=== PATIENT | male | born 1935 | race Caucasian/White ===

== ENCOUNTER 2019-07-16 15:13 | Inpatient (IN) | payer MEDICARE, OTHER ==
[~2019-07-16] VITALS: Ht 177.8 cm; Wt 86.5 kg
--- NOTE | 2019-07-16 15:32 | NUR ---
TELE NEURO HAS BEEN INITIATED
[2019-07-16 15:48] LABS: PARTIAL THROMBOPLASTIN TIME 32 SECONDS (22-32)
[2019-07-16 15:51] LABS: ALANINE AMINOTRANSFERASE 28 U/L (12-78); ALBUMIN 3.4 G/DL (3.4-5.0); ALBUMIN/GLOBULIN RATIO 1.2 (1.1-1.5); ALKALINE PHOSPHATASE 57 IU/L (46-116); ANION GAP 7 (8-16); ASPARTATE AMINO TRANSFERASE 23 U/L (10-37); BILIRUBIN,TOTAL 0.7 MG/DL (0.1-1.0); BLOOD UREA NITROGEN 16 MG/DL (7-18); BUN/CREATININE RATIO 16.3 (5.4-32.0); CALCIUM 7.5 MG/DL (8.5-10.1); CHLORIDE 99 MMOL/L (99-107); CREATININE 0.98 MG/DL (0.60-1.10); GLUCOSE 104 MG/DL (70-104); POTASSIUM 3.6 MMOL/L (3.5-5.1); SODIUM 131 MMOL/L (135-145); TOTAL PROTEIN 6.2 G/DL (6.4-8.2); eGFR 73 ML/MIN
[2019-07-16 15:54] LABS: TROPONIN I < 0.04 NG/ML (0.0-0.05)
[2019-07-16 16:10] LABS: BASOPHILS % (AUTO) 0.2 % (0-1); EOSINOPHILS # (AUTO) 0.1 X10'3 (0-0.9); EOSINOPHILS % (AUTO) 1.1 % (0-6); HEMATOCRIT 36.4 % (42.0-52.0); HEMOGLOBIN 12.7 g/dl (14.0-17.9); LYMPHOCYTES # (AUTO) 1.1 X10'3 (1.1-4.8); LYMPHOCYTES % (AUTO) 16.4 % (21-51); MEAN CORPUSCULAR HEMOGLOBIN 32.4 PG (27.0-31.0); MEAN CORPUSCULAR HGB CONC 34.8 g/dL (33.0-36.5); MEAN CORPUSCULAR VOLUME 93.1 FL (78-98); MONOCYTES # (AUTO) 0.7 X10'3 (0-0.9); MONOCYTES % (AUTO) 10.3 % (2-12); NEUTROPHILS # (AUTO) 4.8 X10'3 (1.8-7.7); PLATELET COUNT 152 X10'3 (140-440); RED BLOOD COUNT 3.91 X10'6 (4.70-6.10); RED CELL DISTRIBUTION WIDTH 13.1 % (11.5-14.5); WHITE BLOOD COUNT 6.6 X10'3 (4.5-11.0)
[2019-07-16] MEDS ORDERED: aspirin 81mg tab.chew PO ONE (16:20)
[2019-07-16] MEDS ORDERED: magnesium 4gm in 100ml NS 100 ML IV PRN (16:25)
[2019-07-16] MEDS ORDERED: magnesium 2GM in 50ml NS 50 ML IV PRN (16:25)
[2019-07-16] MEDS ORDERED: potassium Cl 20 mEq SR tablet PO PRN ×2 (16:25)
[2019-07-16] MEDS ORDERED: morphine 2 MG/ML inj. syringe IV PRN ×2 (16:25)
[2019-07-16] MEDS: K and/or MAG REPLACEMENT MC SCH (16:25)
[2019-07-16] MEDS ORDERED: acetaminophen 325mg tablet PO PRN ×2 (16:25)
[2019-07-16] MEDS ORDERED: HYDROcodone/acetaminophen 10/325mg tab PO PRN (16:25)
[2019-07-16] MEDS ORDERED: magnesium Cl slow-release 64mg tablet PO PRN (16:25)
[2019-07-16] MEDS ORDERED: diphenhydrAMINE 25mg capsule PO PRN (16:25)
[2019-07-16] MEDS ORDERED: potassium CL 10mEq/100ml bag 100 ML IV PRN ×2 (16:25)
[2019-07-16] MEDS ORDERED: mag hydrox/Alum hydrox/simeth 30ml oral suspension PO PRN (16:25)
[2019-07-16] MEDS ORDERED: magnesium hydroxide 30ml (MOM) UD suspension PO PRN (16:25)
[2019-07-16] MEDS ORDERED: bisacodyl 10mg suppository rectal RC PRN (16:25)
[2019-07-16] MEDS ORDERED: ondansetron/PF 4mg/2ml inj IV PRN (16:25)
[2019-07-16] MEDS ORDERED: HYDROcodone/acetaminophen 5mg/325mg tablet PO PRN (16:25)
[2019-07-16] MEDS ORDERED: CARV25TA2 PO (16:38)
[2019-07-16] MEDS ORDERED: NAPR-996 PO (16:38)
[2019-07-16] MEDS ORDERED: FLUT16SP2 BOTHNARES (16:38)
[2019-07-16] MEDS ORDERED: DOXA4TAB3 PO (16:38)
[2019-07-16] MEDS ORDERED: SIMV-45 PO (16:38)
[2019-07-16] MEDS ORDERED: MULT-933 PO (16:38)
[2019-07-16] MEDS ORDERED: LEVO75TA PO (16:38)
[2019-07-16] MEDS ORDERED: LORA-269 PO (16:38)
[2019-07-16] MEDS ORDERED: RANI150C4 PO (16:38)
[2019-07-16] MEDS ORDERED: APIX2.5T PO (16:38)
[2019-07-16] MEDS ORDERED: LISI-604 PO (16:38)
[2019-07-16] MEDS ORDERED: ASPI-611 PO (16:38)
[2019-07-16 16:59] LABS: CHOL/HDL RATIO 2.2 (0.00-4.99); CHOLESTEROL 121 MG/DL (0-200); HDL CHOLESTEROL 55 MG/DL (35-60); LDL CHOLESTEROL 56 MG/DL (50-100); TRIGLYCERIDES 80 MG/DL (20-135)
[2019-07-16 17:27] LABS: CLARITY,URINE CLEAR (Clear); COLOR,URINE YELLOW (Yellow); GLUCOSE, URINE NEGATIVE (Neg); KETONES,URINE TRACE mg/dl (Neg); LEUKOCYTE ESTERASE ,URINE NEGATIVE (Neg); NITRITES, URINE NEGATIVE (Neg); OCCULT BLOOD,URINE NEGATIVE (Neg); PROTEIN,URINE NEGATIVE (Neg); UROBILINOGEN,URINE 0.2 E.U/dL (0.2-1.0)
[2019-07-16 17:32] LABS: UA COLLECTION TYPE CLN CATCH MIDSTREAM
--- NOTE | 2019-07-16 17:42 | NUR ---
Patient in room ED 4. I have received report from Av in the ED and had the opportunity to ask questions and assume patient care.
[2019-07-16 17:45] LABS: HEMOGLOBIN A1C 5.8 % (4.5-6.2)
[2019-07-16] MEDS: normal saline 1000ml 1,000 ML IV SCH (17:56)
--- NOTE | 2019-07-16 18:00 | NUR ---
Patient in room ED 4. I have received report from RADHA Wallace and had the opportunity to ask questions and assume patient care.
[2019-07-16 18:01] VITALS: BP 145/91
--- NOTE | 2019-07-16 18:13 | NUR ---
Problems reprioritized. Patient report given, questions answered & plan of care reviewed with Kaley.
[2019-07-16 22:00] VITALS: BP 149/80
[2019-07-16] MEDS ORDERED: benzocaine/menthol oral lozeng 1 EACH BOX MM PRN (22:40)
[2019-07-16] MEDS ORDERED: LORazepam 0.5 MG tablet PO PRN (22:40)
[2019-07-16] MEDS ORDERED: atorvastatin 20mg tablet PO SCH (22:40)
[2019-07-16] MEDS ORDERED: atorvastatin 10mg tablet PO SCH (22:50)
[2019-07-16] MEDS: apixaban 2.5mg tablet PO SCH (23:13)
[2019-07-17 02:00] VITALS: BP 129/68
[2019-07-17] MEDS: normal saline 1000ml 1,000 ML IV SCH ×2 (02:21→04:49)
[2019-07-17 06:00] VITALS: BP 115/61
--- NOTE | 2019-07-17 06:24 | NUR ---
Problems reprioritized. Patient report given, questions answered & plan of care reviewed with RADHA Beauchamp.
--- NOTE | 2019-07-17 06:30 | NUR ---
received report from fernando green
--- NOTE | 2019-07-17 06:30 | NUR ---
Patient in room [facility]THO 4013. I have received report from Quynh GARCIA and had the opportunity to ask questions and assume patient care.
[2019-07-17] MEDS: K and/or MAG REPLACEMENT MC SCH (06:59)
[2019-07-17] MEDS: apixaban 2.5mg tablet PO SCH (07:15)
[2019-07-17 07:22] LABS: BASOPHILS % (AUTO) 0.1 % (0-1); EOSINOPHILS # (AUTO) 0.1 X10'3 (0-0.9); EOSINOPHILS % (AUTO) 1.5 % (0-6); HEMATOCRIT 36.3 % (42.0-52.0); LYMPHOCYTES # (AUTO) 1.5 X10'3 (1.1-4.8); LYMPHOCYTES % (AUTO) 24.4 % (21-51); MEAN CORPUSCULAR HEMOGLOBIN 33.1 PG (27.0-31.0); MEAN CORPUSCULAR HGB CONC 35.7 g/dL (33.0-36.5); MEAN CORPUSCULAR VOLUME 92.9 FL (78-98); MEAN PLATELET VOLUME 6.9 FL (7.4-10.4); MONOCYTES # (AUTO) 0.7 X10'3 (0-0.9); NEUTROPHILS # (AUTO) 3.8 X10'3 (1.8-7.7); PLATELET COUNT 153 X10'3 (140-440); RED BLOOD COUNT 3.91 X10'6 (4.70-6.10); RED CELL DISTRIBUTION WIDTH 13.2 % (11.5-14.5)
[2019-07-17 07:51] LABS: ALANINE AMINOTRANSFERASE 31 U/L (12-78); ALBUMIN 3.6 G/DL (3.4-5.0); ALBUMIN/GLOBULIN RATIO 1.1 (1.1-1.5); ALKALINE PHOSPHATASE 64 IU/L (46-116); ANION GAP 8 (8-16); ASPARTATE AMINO TRANSFERASE 22 U/L (10-37); BILIRUBIN,TOTAL 0.5 MG/DL (0.1-1.0); BLOOD UREA NITROGEN 15 MG/DL (7-18); CALCIUM 8.8 MG/DL (8.5-10.1); CHLORIDE 102 MMOL/L (99-107); CHOL/HDL RATIO 2.3 (0.00-4.99); CHOLESTEROL 137 MG/DL (0-200); GLUCOSE 109 MG/DL (70-104); HDL CHOLESTEROL 60 MG/DL (35-60); LDL CHOLESTEROL 62 MG/DL (50-100); MAGNESIUM 2.1 MG/DL (1.5-2.4); PHOSPHORUS 3.2 MG/DL (2.3-4.5); POTASSIUM 4.1 MMOL/L (3.5-5.1); SODIUM 134 MMOL/L (135-145); TOTAL CARBON DIOXIDE 24.1 MMOL/L (24-32); TOTAL PROTEIN 6.9 G/DL (6.4-8.2); TRIGLYCERIDES 99 MG/DL (20-135); eGFR 72 ML/MIN
[2019-07-17] MEDS ORDERED: apixaban 2.5mg tablet PO SCH (08:00)
[2019-07-17] MEDS ORDERED: levoTHYROXINE 75mcg tablet PO SCH (08:00)
[2019-07-17] MEDS ORDERED: famotidine 20mg tablet PO SCH (08:00)
[2019-07-17] MEDS ORDERED: lisinopril 5mg tablet PO SCH (08:00)
[2019-07-17] MEDS ORDERED: doxazosin mesylate 2mg tablet PO SCH (08:00)
[2019-07-17] MEDS ORDERED: carVEDilol 12.5mg tablet PO SCH (08:00)
[2019-07-17] MEDS ORDERED: atorvastatin 10mg tablet PO SCH (08:00)
[2019-07-17] MEDS ORDERED: fluticasone nasal spray 16GM bottle NS SCH (08:00)
[2019-07-17] MEDS ORDERED: non-formulary drug (Aspirin (Aspir 81) 1 TAB) PO SCH (08:00)
[2019-07-17] MEDS ORDERED: aspirin 81mg tablet.DR PO SCH (08:00)
[2019-07-17] MEDS ORDERED: multivitamins, therapeutics tablet PO SCH (08:00)
[2019-07-17] MEDS ORDERED: iohexol 350MG/ML 100ml bottle IV ONE (08:45)
[2019-07-17 10:00] VITALS: BP 134/72
--- NOTE | 2019-07-17 11:08 | NUR ---
Student documentation: I have reviewed all interventions, assessments performed and [facility] Medication Administration: For this medication-pass time frame, all medication were reviewed, dispensed, administered and documented per [facility] policy [facility]
--- NOTE | 2019-07-17 13:45 | NUR ---
Spoke with Dr. Deluca who rounded on pt who said pt should now be on Eliquis 5mg BID for discharge and he stated pt was previously on Eliquis 2.5mg BID which was ineffective for stroke like symptoms. Relayed this message to Hospitalist for discharge.
[2019-07-17] MEDS ORDERED: APIX5TAB3 PO (14:02)
--- NOTE | 2019-07-17 14:35 | NUR ---
PT D/C WITH INSTRUCTIONS, UNDERSTANDING OF INSTRUCTIONS AND W/ALL BELONGINGS WALKING OUT W/GRANDDAUGHTER AND DAUGHTER TO GO HOME AND F/U W/PCP
--- NOTE | 2019-07-17 14:50 | NUR ---
Malnutrition consult: Pt admit w/ stroke alert PO 75-100% heart healthy first meals, normal strength, no edema/wounds. First patient admit w/ pt stated wt. At this time pt does not meet minimum malnutrition criteria; will continue to monitor. Addendum: 07/17/19 at [address] Amended: Links added.
[2019-07-17] MEDS ORDERED: LORazepam 1 MG tablet PO SCH (21:00)
== END 2019-07-17 14:30 | disposition home or self-care (01) | DRG 65 ==
LOC: ER 15:13 → ED HOLD 16:21 → ORTHO 4S 17:40 → CMPBEDREQ 19:51 → ORTHO 4S 21:34
PROVIDERS: ADMIT Family Medicine; ATTEND Family Medicine
PROC: B3251ZZ Computerized Tomography (CT Scan) of Bilateral Common Carotid Arteries using Low Osmolar Contrast (ICD-10-PCS; principal; 2019-07-17)
PROC: B32G1ZZ Computerized Tomography (CT Scan) of Bilateral Vertebral Arteries using Low Osmolar Contrast (ICD-10-PCS; 2019-07-17)
PROC: B3281ZZ Computerized Tomography (CT Scan) of Bilateral Internal Carotid Arteries using Low Osmolar Contrast (ICD-10-PCS; 2019-07-17)
DX: I63.9 Cerebral infarction, unspecified (principal); E87.1 Hypo-osmolality and hyponatremia; R47.01 Aphasia; E03.9 Hypothyroidism, unspecified; E78.5 Hyperlipidemia, unspecified; I10 Essential (primary) hypertension; F32.9 Major depressive disorder, single episode, unspecified; I25.10 Atherosclerotic heart disease of native coronary artery without angina pectoris; I48.0 Paroxysmal atrial fibrillation; K21.9 Gastro-esophageal reflux disease without esophagitis; Z60.2 Problems related to living alone; N40.0 Benign prostatic hyperplasia without lower urinary tract symptoms; F41.9 Anxiety disorder, unspecified; Z66 Do not resuscitate; I25.2 Old myocardial infarction; Z79.01 Long term (current) use of anticoagulants; Z79.899 Other long term (current) drug therapy; Z80.51 Family history of malignant neoplasm of kidney; Z82.49 Family history of ischemic heart disease and other diseases of the circulatory system; Z86.73 Personal history of transient ischemic attack (TIA), and cerebral infarction without residual deficits; Z87.891 Personal history of nicotine dependence; Z95.5 Presence of coronary angioplasty implant and graft; Z95.810 Presence of automatic (implantable) cardiac defibrillator; Z88.8 Allergy status to other drugs, medicaments and biological substances
CPT/HCPCS: 36415; 70450; 70496; 70498; 71045; 80053; 80061; 81003; 83036; 83735; 84100; 84443; 84484; 85025; 85610; 85651; 85730; 87081; 92508; 92616; 93005; 93306; 93880; 97116; 97161; 97530; 99285; G0378; J7030; Q9967

== ENCOUNTER 2023-08-09 06:08 | Day surgery (SDC) | payer MEDICARE, OTHER ==
[2023-08-08 12:08] LABS: APTT 29 SECONDS (22-32); PROTHROMBIN TIME 10.5 SECONDS (9.0-12.0)
[2023-08-08 12:09] LABS: ALBUMIN 3.6 G/DL (3.4-5.0); ANION GAP 7 (8-16); BLOOD UREA NITROGEN 19 MG/DL (7-18); BUN/CREATININE RATIO 15.2 (10.0-20.0); CALCIUM 8.9 MG/DL (8.5-10.1); CHLORIDE 94 MMOL/L (99-107); CREATININE 1.25 MG/DL (0.60-1.10); GLUCOSE 127 MG/DL (70-104); POTASSIUM 4.8 MMOL/L (3.5-5.1); SODIUM 128 MMOL/L (135-145); TOTAL CARBON DIOXIDE 26.8 MMOL/L (24-32); eGFR 55 ML/MIN
[2023-08-08 12:49] LABS: BASOPHILS % (AUTO) 0.2 % (0-1); EOSINOPHILS # (AUTO) 0.1 X10'3 (0-0.9); EOSINOPHILS % (AUTO) 2.2 % (0-6); HEMATOCRIT 37.9 % (42.0-52.0); HEMOGLOBIN 12.9 g/dl (14.0-17.9); MEAN CORPUSCULAR HEMOGLOBIN 33.1 PG (27.0-31.0); MEAN CORPUSCULAR HGB CONC 34.1 g/dL (33.0-36.5); MEAN CORPUSCULAR VOLUME 97.2 FL (78-98); MEAN PLATELET VOLUME 7.5 FL (7.4-10.4); MONOCYTES # (AUTO) 0.5 X10'3 (0-0.9); MONOCYTES % (AUTO) 8.9 % (2-12); NEUTROPHILS # (AUTO) 4.1 X10'3 (1.8-7.7); NEUTROPHILS % (AUTO) 70.7 % (42-75); PLATELET COUNT 172 X10'3 (140-440); RED CELL DISTRIBUTION WIDTH 13.2 % (11.5-14.5); WHITE BLOOD COUNT 5.8 X10'3 (4.5-11.0)
[~2023-08-09] VITALS: Ht 177.8 cm; Wt 87.5 kg
[2023-08-09] VITALS (10 sets, daily range): BP systolic 94–132; BP diastolic 49–87; PULSE 60–70; RESP 14–16; TEMP 98.2; O2SAT 94–98
[~2023-08-09 06:08] MED LIST: APIX5TAB3 PO; ASPI-611 PO; CARV25TA2 PO; DOXA4TAB3 PO; FLUT16SP2 BOTHNARES; LEVO75TA PO; LISI5TAB22 PO; LORA-269 PO; MULT-933 PO; RANI150C4 PO; SIMV-45 PO
[2023-08-09] MEDS ORDERED: APIX5TAB3 PO (06:38)
[2023-08-09] MEDS ORDERED: AMI200T PO (06:47)
[2023-08-09] MEDS ORDERED: clindamycin-Cleocin 900mg/D5W 50 ML IV ONE (07:00)
[2023-08-09] MEDS ORDERED: fentaNYL/PF 50MCG/1 ML 2ML syringe ONE (07:29)
[2023-08-09] MEDS ORDERED: LIDOcaine 1% W/epiNEPHrine 1:100,000 20ml vial ONE ×2 (07:30→08:32)
[2023-08-09] MEDS ORDERED: midazolam 1 mg/ML 2ml injection ONE (07:30)
[2023-08-09] MEDS ORDERED: ceFAZolin 1000mg inj ONE (07:30)
[2023-08-09] MEDS ORDERED: vancomycin/NS 1 GM ADD-VANTAGE 250 ML X 1 DOSE IV ONE (11:00)
== END 2023-08-09 13:00 | disposition home or self-care (01) ==
LOC: SSTAY O 06:08
PROVIDERS: ATTEND Internal Medicine Cardiovascular Disease
DX: Z45.02 Encounter for adjustment and management of automatic implantable cardiac defibrillator (principal); I25.10 Atherosclerotic heart disease of native coronary artery without angina pectoris; I48.0 Paroxysmal atrial fibrillation; I11.0 Hypertensive heart disease with heart failure; I50.22 Chronic systolic (congestive) heart failure; I25.5 Ischemic cardiomyopathy; I42.0 Dilated cardiomyopathy; E03.9 Hypothyroidism, unspecified; M19.90 Unspecified osteoarthritis, unspecified site; I25.2 Old myocardial infarction; Z79.82 Long term (current) use of aspirin; Z79.01 Long term (current) use of anticoagulants; Z79.899 Other long term (current) drug therapy; Z88.8 Allergy status to other drugs, medicaments and biological substances; Z88.5 Allergy status to narcotic agent
CPT/HCPCS: 33263; 36415; 80048; 85025; 85610; 85730; 93005; 99152; 99153; C1721; J0690; J2250; J3010; J3370; J3490; J7030; 33228; A4620; A6258; C1722